=== PATIENT | female | born 1975 | race Caucasian/White ===

== ENCOUNTER 2018-01-09 23:34 | Emergency (ER) | payer SELFPAY ==
[~2018-01-09] VITALS: Ht 175.3 cm; Wt 56.2 kg
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
[2018-01-10] MEDS ORDERED: IV RINGERS SOLUTION,LACTATED 1,000 ML IV SCH (00:30)
[2018-01-10] MEDS ORDERED: KETOROLAC 30 MG/ML VIAL. IV ONE (00:30)
--- NOTE | 2018-01-10 00:49 | EKG ---
[address] [address] Test Date: 2018-01-10 Test Time: 00:08:41 Pat Name: ADRIAN PEREIRA Department: Room: Gender: F Housekeeper Cleaning Cooking: SUZAN : 1975 Requested By: VIVEK SANTOS Order Number: [id number] Reading MD: Measurements Intervals [place] Rate: 75 P: 50 MN: 178 QRS: 39 QRSD: 78 T: 38 QT: 378 QTc: 425 Interpretive Statements SINUS RHYTHM QRS(T) CONTOUR ABNORMALITY CONSIDER ANTEROLATERAL MYOCARDIAL DAMAGE POSSIBLY ABNORMAL ECG RI6.01 No previous ECG available for comparison
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
[2018-01-10 01:23] LABS: BILIRUBIN,URINE NEG (NEG); CLARITY,URINE CLEAR; COLOR,URINE STRAW; GLUCOSE,URINE NEG (NEG); UROBILINOGEN,URINE 0.2 mg/dL (0.2 mg/dL)
[2018-01-10 01:24] LABS: BACTERIA,URINE FEW /HPF (0-FEW); NITRITE,URINE NEG (NEG); RBC,URINE OCC /HPF (0-2); SQUAMOUS EPITHELIAL CELL,UR OCC /LPF; WBC,URINE OCC /HPF (0-4)
[2018-01-10 01:27] LABS: BARBITURATES NEG (NEG); BENZODIAZEPINES NEG (NEG); CANNABINOIDS NEG (NEG); COCAINE NEG (NEG); METHADONE NEG (NEG); OPIATES NEG (NEG); PHENCYCLIDINE NEG (NEG)
[2018-01-10 01:34] LABS: BASO # 0.1 x10^3/uL (0.0-0.2); BASO % 1 % (0-3); EOS # 0.2 x10^3/uL (0.0-0.7); EOS % 2 % (0-3); LYMPH # 2.7 x10^3/uL (1.0-4.8); LYMPH % 28 % (24-48); MEAN CORPUSCULAR HEMOGLOBIN 21 pg (25-35); MEAN CORPUSCULAR HGB CONC 30 g/dL (31-37); MEAN CORPUSCULAR VOLUME 69 fL (79-100); MONO # 0.7 x10^3/uL (0.0-1.1); MONO % 7 % (0-9); NEUT # 6.1 x10^3uL (1.8-7.7); NEUT % 62 % (31-73); PLATELET COUNT 251 x10^3/uL (140-400); RED BLOOD COUNT 5.03 x10^6/uL (3.50-5.40); RED CELL DISTRIBUTION WIDTH 17.7 % (11.5-14.5); WHITE BLOOD COUNT 9.9 x10^3/uL (4.0-11.0)
[2018-01-10 01:35] LABS: HEMOGLOBIN 10.6 g/dL (12.0-15.5)
[2018-01-10 01:36] LABS: HEMATOCRIT 34.2 % (36.0-47.0)
[2018-01-10 01:37] LABS: ALK PHOS 78 U/L (46-116); ALT (SGPT) 16 U/L (14-59); ANION GAP 10 (6-14); AST (SGOT) 13 U/L (15-37); BLOOD UREA NITROGEN 14 mg/dL (7-20); CALCIUM 8.8 mg/dL (8.5-10.1); CARBON DIOXIDE 27 mmol/L (21-32); CHLORIDE 102 mmol/L (98-107); CREATININE 0.8 mg/dL (0.6-1.0); GFR 77.9; GLUCOSE 82 mg/dL (70-99); POTASSIUM 3.9 mmol/L (3.5-5.1); SODIUM 139 mmol/L (136-145); TOTAL BILIRUBIN 0.1 mg/dL (0.2-1.0); TOTAL PROTEIN 7.6 g/dL (6.4-8.2)
[2018-01-10 01:38] LABS: AMPHETAMINE/METHAMPHETAMINE NEG (NEG)
[2018-01-10 01:39] LABS: DIRECT BILIRUBIN < 0.1 mg/dL (0.0-0.2)
[2018-01-10] MEDS ORDERED: CYCL-331 PO (01:52)
[2018-01-10] MEDS ORDERED: CYCLOBENZAPRINE 10MG 4TABLET STARTPACK PO ONE ×2 (02:00→02:30)
[2018-01-10 02:05] VITALS: BP 130/80
--- NOTE | 2018-01-10 03:02 | RAD ---
PA and lateral chest x-ray HISTORY: Dizziness and coughing. FINDINGS: Heart size normal. Mediastinal silhouette is normal. No pneumothorax, pulmonary opacities or pleural effusions. Bones unremarkable. IMPRESSION: No acute process. Electronically signed by: Roosevelt Kirby MD (01/10/2018 2:59 AM) [facility] [id number]
== END 2018-01-10 02:10 | disposition home or self-care (01) ==
LOC: ER 23:34
DX: R42 Dizziness and giddiness (principal); R51 Headache; M54.2 Cervicalgia; M47.896 Other spondylosis, lumbar region; N92.6 Irregular menstruation, unspecified; D50.9 Iron deficiency anemia, unspecified; N28.1 Cyst of kidney, acquired; F17.210 Nicotine dependence, cigarettes, uncomplicated
CPT/HCPCS: 36415; 70450; 71046; 72125; 72131; 80048; 80076; 80307; 81001; 83605; 84484; 85025; 85045; 85379; 85610; 85730; 86850; 86900; 86901; 93005; 96361; 96374; 99285; G0480; J1885; J7120; G0479